=== PATIENT | male | born 1965 ===

== ENCOUNTER 2017-03-09 16:50 | Emergency (ER) | payer OTHER ==
[2017-03-09 17:22] VITALS: BMI 32.2
[2017-03-09 17:25] VITALS: RESP 18; TEMP 98.6; O2SAT 98
--- NOTE | 2017-03-09 17:52 | ED PDOC ---
Arrival/HPI - General Chief Complaint: Back Pain Time Seen by Provider: 03/09/17 17:44 Historian: Patient - History of Present Illness Narrative History of Present Illness (Text): 03/09/17 17:49 This 51 yo male presents to this ED c/o right posterior rib pain x 10 days. Patient stated while walking he slipped and fell down on his right side upper back. He stated pain was mild, but pain has worsen last 3 days. painful to take a deep breath. Denies hemoptysis, cp, sob, abrasion, ecchymosis, abdominal pain, dizziness, abnormal gait, head injury, reddy, or fever. Time/Duration: Other (10 days) Quality: Aching Context: Work Past Medical History - Provider Review Nursing Documentation Reviewed: Yes - Past History Past History: No Previous - Infectious Disease Hx of Infectious Diseases: None - Tetanus Immunization Tetanus Immunization: Unknown - Past Medical History Past Medical History: No Previous - Cardiac Hx Cardiac Disorders: No - Pulmonary Hx Respiratory Disorders: No - Neurological Hx Neurological Disorder: No - HEENT Hx HEENT Disorder: No - Renal Hx Renal Disorder: No - Endocrine/Metabolic Hx Endocrine Disorders: No - Hematological/Oncological Hx Blood Disorders: No - Integumentary Hx Dermatological Disorder: No - Musculoskeletal/Rheumatological Hx Musculoskeletal Disorders: No - Gastrointestinal Hx Gastrointestinal Disorders: No - Genitourinary/Gynecological Hx Genitourinary Disorders: No - Psychiatric Hx Depression: No Hx Emotional Abuse: No Hx Physical Abuse: No Hx Substance Use: No - Past Surgical History Past Surgical History: No Previous - Surgical History Other/Comment: bilateral rotator cuff sx. - Anesthesia Hx Anesthesia: Yes Hx Anesthesia Reactions: No Hx Malignant Hyperthermia: No - Suicidal Assessment Feels Threatened In Home Enviroment: No Family/Social History - Physician Review Nursing Documentation Reviewed: Yes Family/Social History: No Known Family HX Smoking Status: Never Smoked Hx Alcohol Use: No Hx Substance Use: No Hx Substance Use Treatment: No Allergies/Home Meds Allergies/Adverse Reactions: Allergies No Known Allergies Allergy (Verified 09/03/15 01:32) Review of Systems - Review of Systems Constitutional: Normal. absent: Fatigue, Weight Change, Fevers Eyes: Normal. absent: Vision Changes ENT: Normal Respiratory: Normal. absent: SOB, Cough, Sputum, Wheezing Cardiovascular: Normal. absent: Chest Pain, Palpitations, Edema, Calf Pain Gastrointestinal: Normal. absent: Abdominal Pain, Nausea, Vomiting Genitourinary Male: Normal. absent: Hematuria Musculoskeletal: Back Pain. absent: Neck Pain Skin: Normal Neurological: Normal Endocrine: Normal Hemo/Lymphatic: Normal Psychiatric: Normal Physical Exam Vital Signs Temp Pulse Resp BP Pulse Ox 03/09/17 17:24 98.6 F 82 18 126/86 98 Temperature: Afebrile Blood Pressure: Normal Pulse: Regular Respiratory Rate: Normal Appearance: Positive for: Well-Appearing, Non-Toxic, Comfortable Pain Distress: None Mental Status: Positive for: Alert and Oriented X 3 - Systems Exam Head: Present: Atraumatic, Normocephalic Pupils: Present: PERRL Extroacular Muscles: Present: EOMI Conjunctiva: Present: Normal Mouth: Present: Moist Mucous Membranes Neck: Present: Normal Range of Motion Respiratory/Chest: Present: Clear to Auscultation, Good Air Exchange, Tender to Palpation (Pain is 100 % reproducible). No: Respiratory Distress, Accessory Muscle Use, Wheezes, Decreased Breath Sounds, Rales, Retracting, Rhonchi, Tachypneic Cardiovascular: Present: Regular Rate and Rhythm, Normal S1, S2. No: Murmurs Abdomen: Present: Normal Bowel Sounds. No: Tenderness, Distention, Peritoneal Signs, Rebound, Guarding Back: No: CVA Tenderness, Midline Tenderness, Paraspinal Tenderness Upper Extremity: Present: Normal Inspection, Normal ROM, NORMAL PULSES, Neurovascularly Intact, Capillary Refill < 2s. No: Cyanosis, Edema Lower Extremity: Present: Normal Inspection, NORMAL PULSES, Normal ROM, Neurovascularly Intact, Capillary Refill < 2 s. No: Edema Neurological: Present: GCS=15, CN II-XII Intact, Speech Normal, Motor Func Grossly Intact, Normal Sensory Function, Normal Cerebellar Funct, Gait Normal, Memory Normal, Other (No neuro focal deficits) Skin: Present: Warm, Dry, Normal Color. No: Rashes Psychiatric: Present: Alert, Oriented x 3, Normal Insight, Normal Concentration Medical Decision Making ED Course and Treatment: 03/09/17 18:57 Re-evaluation. Patient feels better. Discussed results and plan with patient who expresses understanding. All questions answered and there is agreement with the plan to discharge home with instructions. Patient stable for discharge. Return if symptoms persist or worsen. Re-evaluation Time: 18:58 Reassessment Condition: Re-examined, Improved - RAD Interpretation Narrative RAD Interpretations (Text): 03/09/17 18:58 Rib series x-rays: No fracture. No pneumo Radiology Orders: 03/09/17 17:48 RIBS BILATERAL W/PA CHEST [RAD] Stat - Medication Orders Current Medication Orders: Discontinued Medications Ketorolac Tromethamine (Toradol) 30 mg IM STAT STA Stop: 03/09/17 17:49 Last Admin: 03/09/17 18:04 Dose: 30 mg Disposition/Present on Arrival - Present on Arrival Any Indicators Present on Arrival: No History of DVT/PE: No History of Uncontrolled Diabetes: No Urinary Catheter: No History of Decub. Ulcer: No History Surgical Site Infection Following: None - Disposition Have Diagnosis and Disposition been Completed?: Yes Diagnosis: Chest wall muscle strain Disposition: HOME/ ROUTINE Disposition Time: 18:59 Patient Plan: Discharge Condition: GOOD Discharge Instructions (ExitCare): Chest Wall Pain (ED), How to Use an Incentive Spirometer (ED) Additional Instructions: Call private doctor for follow up visit in 2-3 days. Take medication as instructed. Do breathing exercise every 2 hours for 10 minutes for 5 days. Return to emergency if symptoms worsen. Prescriptions: Famotidine [Pepcid] 40 mg PO DAILY #10 tablet Naproxen 500 mg PO BID #14 tab
[2017-03-09 19:30] VITALS: BP 130/75; PULSE 80
--- NOTE | 2017-03-10 10:59 | RAD ---
PROCEDURE: Radiographs of the chest and bilateral ribs HISTORY: pain s/p fall COMPARISON: 09/03/2010 TECHNIQUE: Frontal radiograph of the chest and multiple oblique radiographs of the bilateral ribs were obtained. FINDINGS: RIGHT RIBS: There is smooth deformity of the anterolateral right 6th rib, possibly an old healed fracture. There is no evidence of acute fracture. There is no fracture identified elsewhere. LEFT RIBS: No fracture or focal lesion visualized. LUNGS: Clear. PLEURA: No pneumothorax or pleural fluid. CARDIOVASCULAR: Normal sized heart. No pulmonary vascular congestion. OTHER FINDINGS: None. IMPRESSION: No evidence of acute fracture. Probable old healed fracture right 6th rib anterolaterally. Otherwise unremarkable examination.
== END 2017-03-09 19:15 | disposition home or self-care (01) ==
LOC: ED 16:50
DX: S29.011A Strain of muscle and tendon of front wall of thorax, initial encounter (principal); W01.0XXA Fall on same level from slipping, tripping and stumbling without subsequent striking against object, initial encounter; Y93.89 Activity, other specified; Y92.89 Other specified places as the place of occurrence of the external cause
CPT/HCPCS: 71111; 96372; 99282; J1885

== ENCOUNTER 2018-07-12 08:15 | Emergency (ER) | payer OTHER ==
[2018-07-12 08:15] VITALS: BMI 32.2
[2018-07-12 08:26] VITALS: RESP 18; TEMP 98.7
--- NOTE | 2018-07-12 09:36 | ED PDOC ---
Arrival/HPI - General Chief Complaint: Cough, Cold, Congestion Time Seen by Provider: 07/12/18 08:28 Historian: Patient - History of Present Illness Narrative History of Present Illness (Text): 07/12/18 08:30 53 year old male with no significant past medical history, who presents to the emergency department complaining of cough and chest congestion x2 days, sore throat. . Patient notes associated sore throat Patient denies any fever, ear pain, or any other complaints. PMD: Dr. Thang Fernandez 07/12/18 12:38 Time/Duration: Other (Patient notes cough and chest congestion x2 days) Symptom Onset: Sudden Symptom Course: Unchanged Activities at Onset: Light Past Medical History - Provider Review Nursing Documentation Reviewed: Yes - Past History Past History: No Previous - Infectious Disease Hx of Infectious Diseases: None - Tetanus Immunization Tetanus Immunization: Unknown - Past Medical History Past Medical History: No Previous - Cardiac Hx Cardiac Disorders: No - Pulmonary Hx Respiratory Disorders: No - Neurological Hx Neurological Disorder: No - HEENT Hx HEENT Disorder: No - Renal Hx Renal Disorder: No - Endocrine/Metabolic Hx Endocrine Disorders: No - Hematological/Oncological Hx Blood Disorders: No - Integumentary Hx Dermatological Disorder: No - Musculoskeletal/Rheumatological Hx Musculoskeletal Disorders: No - Gastrointestinal Hx Gastrointestinal Disorders: No - Genitourinary/Gynecological Hx Genitourinary Disorders: No - Psychiatric Hx Depression: No Hx Emotional Abuse: No Hx Physical Abuse: No Hx Substance Use: No - Past Surgical History Past Surgical History: No Previous - Surgical History Other/Comment: bilateral rotator cuff sx. - Anesthesia Hx Anesthesia: Yes Hx Anesthesia Reactions: No Hx Malignant Hyperthermia: No - Suicidal Assessment Feels Threatened In Home Enviroment: No Family/Social History - Physician Review Nursing Documentation Reviewed: Yes Family/Social History: No Known Family HX Smoking Status: Never Smoked Hx Alcohol Use: No Hx Substance Use: No Hx Substance Use Treatment: No Allergies/Home Meds Allergies/Adverse Reactions: Allergies No Known Allergies Allergy (Verified 09/03/15 01:32) Review of Systems - Physician Review All systems were reviewed & negative as marked: Yes - Review of Systems Constitutional: Normal. absent: Fevers ENT: Sore Throat (patient notes sore throat ). absent: Normal, Hearing Changes Respiratory: SOB (patient notes some shortness of breath ), Cough (patient notes cough x2 days), Other (patient notes chest congestion x2 days. ). absent: Normal Physical Exam Vital Signs Reviewed: Yes Vital Signs Temp Pulse Resp BP Pulse Ox 07/12/18 08:24 98.7 F 80 18 166/99 H 97 Temperature: Afebrile Blood Pressure: Hypertensive (at 166/99) Pulse: Regular Respiratory Rate: Normal Appearance: Positive for: Well-Appearing, Non-Toxic Pain Distress: None Mental Status: Positive for: Alert and Oriented X 3 - Systems Exam Head: Present: Atraumatic, Normocephalic Pupils: Present: PERRL Extroacular Muscles: Present: EOMI Conjunctiva: Present: Normal Mouth: Present: Moist Mucous Membranes Pharnyx: Present: ERYTHEMA. No: Normal, EXUDATE (no exudate) Neck: Present: Normal Range of Motion Respiratory/Chest: Present: Clear to Auscultation, Good Air Exchange. No: Respiratory Distress, Accessory Muscle Use Cardiovascular: Present: Regular Rate and Rhythm, Normal S1, S2. No: Murmurs Abdomen: No: Tenderness, Distention, Peritoneal Signs Back: Present: Normal Inspection Upper Extremity: Present: Normal Inspection. No: Cyanosis, Edema Lower Extremity: Present: Normal Inspection. No: Edema Neurological: Present: GCS=15, CN II-XII Intact, Speech Normal Skin: Present: Warm, Dry, Normal Color. No: Rashes Psychiatric: Present: Alert, Oriented x 3, Normal Insight, Normal Concentration Medical Decision Making ED Course and Treatment: 07/12/18 08:30 Impression:53 year old male who presents to the emergency department complaining of cough and chest congestion x2 days. Differential Diagnosis included but are not limited to: ro pna vs influneza vs strep Plan: -- X-Ray of chest -- Tylenol 325mg -- Throat culture -- Influenza A B -- Rapid Strep Group A Antigen -- Reassess and disposition Prior Visits: Notes and results from previous visits were reviewed. Progress Notes: 07/12/18 17:48 cxr neg. pt speaking full sentences lungs cta ekg no changes. no cardiac type chest pain. influenza strep neg. advise outpt fu. - Lab Interpretations Lab Results: Lab Results 07/12/18 08:55: Influenza Typ A,B (EIA) Negative for flu a/b 07/12/18 08:55: Grp A Beta Strep Ag Negative - RAD Interpretation Narrative RAD Interpretations (Text): 07/12/18 10:48 Chest X-ray read and interpreted by me shows no acute disease. Radiology Orders: 07/12/18 08:33 CXR [CHEST TWO VIEWS (PA/LAT)] [RAD] Stat Cracking Still Operator: ED Physician - Medication Orders Current Medication Orders: Discontinued Medications Acetaminophen (Tylenol 325mg Tab) 975 mg PO STAT STA Stop: 07/12/18 08:39 Last Admin: 07/12/18 08:59 Dose: 975 mg MAR Pain/Vitals Document 07/12/18 08:59 EQ (Rec: 07/12/18 09:02 EQ [id number]) Pain Reassessment Is This A Pain ReAssessment? No Sleep Is patient sleeping during reassessment? No Presence of Pain Presence of Pain Yes - Scribe Statement The provider has reviewed the documentation as recorded by the Scribe Merari Coulter All medical record entries made by the Scribe were at my direction and personally dictated by me. I have reviewed the chart and agree that the record accurately reflects my personal performance of the history, physical exam, medical decision making, and the department course for this patient. I have also personally directed, reviewed, and agree with the discharge instructions and disposition. Disposition/Present on Arrival - Present on Arrival Any Indicators Present on Arrival: No History of DVT/PE: No History of Uncontrolled Diabetes: No Urinary Catheter: No History of Decub. Ulcer: No History Surgical Site Infection Following: None - Disposition Have Diagnosis and Disposition been Completed?: Yes Diagnosis: Viral syndrome Disposition: HOME/ ROUTINE Disposition Time: 09:00 Condition: STABLE Discharge Instructions (ExitCare): Viral Syndrome (DC) Additional Instructions: please follow up with [facility] doctor. return toer with worsening symptoms or concerns. Referrals: Sreedhar Fernandez MD [Primary Care Provider] - Follow up with primary Forms: [employer] (Danish), WORK NOTE
[2018-07-12 11:38] VITALS: BP 142/76; PULSE 88; O2SAT 98
--- NOTE | 2018-07-12 11:59 | RAD ---
Date of service: 07/12/2018 HISTORY: cough COMPARISON: Comparison chest 03/09/2017. TECHNIQUE: Chest PA and lateral FINDINGS: LUNGS: No active pulmonary disease. PLEURA: No significant pleural effusion identified. No pneumothorax apparent. CARDIOVASCULAR: No aortic atherosclerotic calcification present OSSEOUS STRUCTURES: No significant abnormalities. VISUALIZED UPPER ABDOMEN: Normal. OTHER FINDINGS: None. IMPRESSION: No active disease.
--- NOTE | 2018-07-12 14:22 | CARD ---
APPROVED REPORT Date of service: 07/12/2018 EKG Measurement Heart [id number] <Conclusion> Normal sinus rhythm LVH by voltage
== END 2018-07-12 11:00 | disposition home or self-care (01) ==
LOC: ED 08:15
DX: B34.9 Viral infection, unspecified (principal)